=== PATIENT | female | born 1990 | race African-American/Black ===

== ENCOUNTER 2025-09-10 12:18 | Outpatient (CLI) | payer OTHER, SELFPAY ==
--- NOTE | ~2025-09-10 | XR_ITS ---
EXAMINATION: XR knee LT 3V, 09/10/2025 12:35 CDT HISTORY: Pain in Joint,Knee Left Knee Pain x 1 month, no known injury COMPARISON: No comparisons available. Findings: No acute fracture or malalignment. Severe tricompartmental degenerative changes Soft tissues unremarkable. Impression: No acute fracture or malalignment. Reviewed, dictated and finalized at location P. Impression: No acute fracture or malalignment.
--- OUTSIDE RECORDS SUMMARY | 2025-09-10 12:28 | XMS_ITS | Clinical Summary ---
Author Organization [facility] [email or web address] Address [address] [place] [address] Care Team Providers Care Musical Instruments Assembler Name Role Phone Jennifer Patelar Primary Care Provider [phone] Source Comments [facility] [email or web address],non-owned Affiliates and Associated Physician Practices is amultiple site organization consisting of ambulatory clinics and hospital sitesin [place], [place], [place] and [place]. This disclosure is being madepursuant to the Care Everywhere program and may not contain all informatio navailable regarding this patient. Last updated 18.[email or web address] Allergies No known active allergies Medications * This document contains information received from the source organization and may not represent a complete record from that organization. * Be aware that medications may not be up to date on this document. Alwaysverify current medications with the patient. Glucagon (Baqsimi One Pack) 3 MG/DOSE POWDIndications:D iabetes mellitus during , antepartum, unspecified diabetes mellitus type (HCC) [place] 1 Each into the nose as needed 1 Each 1 4 Active Lancets (ONETOUCH DELICA PLUS 33G EXTRA FINE LANCET)Indication s:Pre-existing diabetes mellitus during in first trimester (HCC) To monitor blood glucose 7x daily- fasting, pre-meals, 1 hour post-meals, and as needed. 200 Each 5 4 Active calcium-vitamin D (Caltrate Plus D) 600-200 MG-UNIT tablet Take 1 (one) tablet by mouth once daily 4 Active Insulin Pen Needle (TechLite Pen [place]) 32G X 4 MM MISCIndications:P re-existing type 2 diabetes mellitus during in third trimester (HCC) Use 1 Each 3 times daily 200 Each 5 4 Active metFORMIN (Glucophage) 1000 MG tablet Take 1 (one) tablet by mouth 2 times daily with morning and evening meal 90 tablet 1 5 Active polyethylene glycol 3350 (Miralax) 17 GM/SCOOP powder Mix one capful in liquid and drink by mouth once daily 238 g 12/28/2024 8:44 AM FLIGHT OPERATIONS SPECIALIST 5 Active Additional Information Patient not taking.Reason: Patient adjusted, Reported on 03/18/2025 acetaminophen (Tylenol) 500 MG tablet Take 2 (two) tablets by mouth every 6 hours as needed for Fever or Pain 50 tablet 12/28/2024 8:44 AM FLIGHT OPERATIONS SPECIALIST 5 Active Additional Information Patient not taking.Reason: Patient adjusted, Reported on 03/18/2025 norethindrone (Ortho Micronor) 0.35 MG tabletIndications :Encounter for surveillance of contraceptive pills Take 1 (one) tablet by mouth once daily 30 tablet 12 5 Active Additional Information Patient not taking.Reason: Other, Reported on 03/18/2025 NIFEdipine CR osmotic 24hr (Procardia-XL) 90 MG tablet Take 1 (one) tablet by mouth at bedtime 90 tablet 3 5 Active labetalol (Normodyne; Trandate) 300 MG tablet Take 1 (one) tablet by mouth 2 times daily 180 tablet 3 5 Active Vit-Fe Fumarate-FA ( vitamin) 28-0.8 MG tablet Take 1 (one) tablet by mouth once daily 100 tablet 3 5 Active FeroSul 325 (65 Fe) MG tablet Take 1 (one) tablet by mouth 3 times daily 270 tablet 3 5 Active blood glucose (Contour Plus Test) test stripIndications: Type 2 diabetes mellitus without complication, without long-term current use of insulin ([facility]) Use 1 (one) strip 4 times daily 100 strip 11 5 Active Active Problems Patient Care Coordination No te Formatting of this note migh t be different from the original. [employer] form completed. Diapers given. 10/18/2024, 11/29/24, 12/13/23 Problem Noted Date Diagnosed Date History of severe pre-eclampsia 01/12/2025 Overview (01/12/2025): G1 Obesity, Class III, BMI 40-49.9 (morbid obesity) 01/12/2025 Type 2 diabetes mellitus wit hout complication, without long-term current use of insulin 12/22/2024 Iron deficiency anemia 10/08/2024 Chronic hypertension 06/23/2024 Resolved Problems Problem Noted Date Diagnosed Date Resolved Date History of low transverse section 01/12/2025 03/02/2025 Overview (01/12/2025): - G1 (12/2024): pLTCS for FTP History of hemorrhage 01/12/2025 03/02/2025 Overview (01/12/2025): G1: - QBL 2740mL secondary to uterine atony - S/P Pitocin x2, Hemabate x2, TXA x2, cytotec, IM pitocin and Hallie - S/P 3u pRBCs and 1 FFP History of blood transfusion 01/12/2025 03/02/2025 Overview (01/12/2025): In G1 delivery care following delivery 01/12/2025 03/02/2025 Obesity affecting 08/23/2024 01/12/2025 Abnormal chromosomal and gen etic finding on screening of mother 08/23/2024 01/12/2025 Overview (08/26/2024): No results NIPT d/t low fraction x4 Diabetes in 06/23/20242024 Glucose intolerance 06/23/2024 01/12/20 25 Class 3 severe obesity with serious comorbidity and body mass index (BMI) greater than or equal to 70 in adult 06/23/2024 01/26/2025 Antepartum multigravida of a dvanced maternal age 0706/23/2024 01/12/2025 Immunizations Immunization Administration Dates Next Due MMR 12/25/2024() RSV ABRYSVO PREG OR 60y+ 0.5mL 11/29/2024 TDAP (7yrs+) 12/25/2024(),10/18/2024 Family History Medical History Relation Name Comments Blindness Neg Hx Cataract Neg Hx Glaucoma Neg Hx Macular Degeneration Neg Hx Social History Tobacco Use Types Packs/Day Years Used Date Smoking Tobacco: Unknown Tobacco Cessation:Counseling Given: No Alcohol Use Standard Drinks/Week Comments Not Currently 0 (1 standard drink = 0.6 oz pur e alcohol) AUDIT-C Answer Date Recorded Q1: How often do you have a drink containing alcohol? Never 02/25/2025 Q2: How many drinks containi ng alcohol do you have on a typical day when you are drinking? Patient does not drink Q3: How often do you have si x or more drinks on one occasion? Never 02/25/2025 Overall Financial Resource Strain (CARDIA) Answe r Date Recorded How hard is it for you to pa y for the very basics like food, housing, medical care, and heating? Not hard at all 03/02/2025 PHQ-2 Answer Date Recorded Patient Health Questionnaire-2 Score 0 11/23/2024 [facility] - Occupational Stress Questionnaire Answer Date Recorded Do you feel stress - tense, restless, nervous, or anxious, or unable to sleep at night because your mind is troubled all the time - these days? Only a little 03/02/2025 Hunger Vital Sign Answer Date Recorded Within the past 12 months, y ou worried that your food would run out before you got the money to buy more. Never true 03/02/20 25 Within the past 12 months, t he food you bought just didn't last and you didn't have money to get more. Never true 03/02/2025 PRAPARE - Transportation Answer Date Re corded In the past 12 months, has l ack of transportation kept you from medical appointments or from getting medications? No 01/2025 In the past 12 months, has l ack of transportation kept you from meetings, work, or from getting things needed for daily living? No 03/02/2025 Housing Stability Vital Sign Answer Kenneth e Recorded In the last 12 months, was t here a time when you were not able to pay the mortgage or rent on time? No 06/21/2024 In the last 12 months, how many places have you lived? 1 06/21/2024 In the last 12 months, was t here a time when you did not have a steady place to sleep or slept in a penitentiary (including now)? No 06/21/2024 [place] Depression Scale Answer Date Recorded [place] Depression Scale Total 0 03/02/2025 The thought of harming myself has occurred to me . Never 03/02/2025 Housing Stability Vital Sign Answer Kenneth e Recorded In the last 12 months, was t here a time when you were not able to pay the mortgage or rent on time? No 03/02/2025 In the past 12 months, how m any times have you moved where you were living? 0 03/02/2025 At any time in the past 12 m [place], were you homeless or living in a penitentiary (including now)? No 03/02/2025 Comments No Sex and Gender Information Value Date Recorded Sex Assigned at Not on file Legal Sex Female 5:35 AM FLIGHT OPERATIONS SPECIALIST Gender Identity Female 06/14/2024 9:48 AM CDT Sexual Orientation Not on file Last Filed Vital Signs Vital Sign Reading Time Taken Comments Blood Pressure 140/87 03/18/2025 4:30 PM CDT Pulse 106 03/18/2025 4:30 PM CDT Temperature 37 C (98.6 F) 03/18/2025 4:30 PM CDT Respiratory Rate 18 03/02/2025 10:42 AM CDT Oxygen Saturation 95% 03/18/2025 4:30 PM CDT Inhaled Oxygen Concentration - - Weight 149.7 kg (330 lb) 03/18/2025 4:30 PM CDT Height 152.4 cm (5') 03/18/2025 4:30 PM CDT Body Mass Index 64.45 03/18/2025 4:30 PM CDT Plan of Treatment Upcoming Encounters Date Type Department Care Team (Late st Contact Info) Description 09/28/2025 1:30 PM CDT Office Visit [facility] - Ophthalmology [address] [place] [phone] Ross Negrete MD [address] [place] [address] [place] [address] Health Maintenance Due Date Last Done Comments HEPATITIS B VACCINE (1 of 3 - 19+ 3-dose series) 02/25/2008 PNEUMOCOCCAL VACCINE (1 of 2 - PCV) 02/25/2008 PAP SMEAR 2010 HPV VACCINE (1 - 3-dose SCDM series) 02/25/2016 DIABETES-FOOT EXAM WITH MONOFILAMENT 01/12/2025 COVID-19 VACCINE ( season) 2025 10/17/2022, 01/20/2022, 03/25/2021, Additional history exists INFLUENZA VACCINE (#1) 2025 , 10/17/2022, 12/11/2021 DIABETES-HGB A1C 09/01/2025 03/02/2025, , 08/23/2024 DIABETES - URINE PROTEIN SCREENING 03/18/2026 03/18/2025, 03/02/2025, 12/22/2024, Additional history exists DIABETES-SERUM CREATININE 03/18/20262024, 03/02/2025, 12/25/2024, Additional history exists DIABETES RETINOPATHY SCREENING 09/28/2026 09/28/2024 DTAP/TDAP/TD VACCINES (2 - Td or Tdap) 10/18/2034 10/18/2024 ZOSTER VACCINE (1 of 2) 2039 HEPATITIS C SCREENING Completed 06/21/2024 HIV SCREENING Completed 10/18/2024, 06/21/2024 Respiratory Syncytial Virus (RSV) Vaccine Pt: or over 60 yrs Discontinued 11/29/2024 DEPRESSION SCREENING Completed 03/02/2025 HIB VACCINE Aged Out No longer eligi ble based on patient's age to complete this topic MENINGOCOCCAL (Group B) VACCINE SHARED DECISION-MAKING Aged Out No longer eligible based on patient's age to complete this topic MENINGOCOCCAL GROUPS A/C/Y/W VACCINE Aged Out No longer eligible based on patient's age to complete this topic Goals Goal Patient Goal Type Associated Problems Recent Progress Patient-Stated? Author Medication Management General On track( 025 4:25 PM CDT) Yenny Ye, RN Note: Expected end date: ongoing Interventions: Take all medications as prescribed Make sure to request a refill of your medication at least one week prior to your last dose Try the following to manage nausea: Eat bland, easy to digest foods and drinks Eat small meals and snacks Talk with your doctor or nurse about medications you can take Procedures Procedure Name Priority Date/Time Associated Diagnosis Comments PROTEIN CREATININE RATIO URINE RANDOM PNL Routine 03/18/2025 3:56 PM CDT Iron deficiency anemia due to chronic blood loss Chronic hypertension affecting (HCC) COMPREHENSIVE METABOLIC PANEL Routine 03/18/2025 3:52 PM CDT Iron deficiency anemia due to chronic blood loss Chronic hypertension affecting (HCC) HEMOGLOBIN A1C Routine 03/02/2025 10:07 AM CDT Type 2 diabetes mellitus without complication, without long-term current use of insulin (HCC) HIV-1 HIV-2 ANTIBODY + HIV P24 AG PANEL Routine 10/18/2024 11:35 AM FLIGHT OPERATIONS SPECIALIST Antepartum multigravida of advanced maternal age HEPATITIS C ANTIBODY Routine 06/21/2024 11:52 AM CDT Supervision of high-risk of elderly multigravida from Last 3 Months or Most Recently Relevant to Health Maintenance Results * (ABNORMAL) PROTEIN CREATININE RATIO URINE RANDOM PNL (03/18/2025 3:56 PM CDT) Protein Urine 79 Not Established mg/dL 03/18/2025 5:03 PM CDT [facility] Creatinine Urine 193.76 Not Established mg/dL 03/18/2025 5:03 PM CDT [facility] Protein/Creati nine Ratio Urine 0.41(H) <0.10 03/18/2025 5:03 PM T [facility] Urine URINE SPECIMEN OBTAINED BY CLEAN CATCH PROCEDURE / Unknown Collection / Unknown 03/18/2025 3:56 PM CDT 03/18/2025 4:10 PM CDT Miller Hernandez MD LAB - URINE CHEMISTRY ORDERABLE S Final Result [facility] [address] [place] [address], [facility] [phone] * (ABNORMAL) COMPREHENSIVE METABOLIC PANEL (03/18/2025 3:52 PM [facility]) BUN 14 7 - 26 mg/dL 03/18/2025 5:00 PM [facility] Creatinine 0.71 0.56 - 0.96 mg/dL 03/18/2025 5:00 PM [facility] Sodium 141 136 - 145 mmol/L 03/18/2025 5:00 PM [facility] Potassium 4.0 3.5 - 4.5 mmol/L 03/18/2025 5:00 PM [facility] Chloride 104 98 - 107 mmol/L 03/18/2025 5:00 PM [facility] CO2 23 22 - 29 mmol/L 03/18/2025 5:00 PM [facility] Glucose 91 70 - 99 mg/dL 03/18/2025 5:00 PM [facility] Calcium 9.8 8.4 - 10.2 mg/dL 03/18/2025 5:00 PM [facility] Protein Total 8.3 6.0 - 8.3 g/dL 03/18/2025 5:00 PM [facility] Albumin 4.0 3.4 - 5.0 g/dL 03/18/2025 5:00 PM [facility] Bilirubin Total 0.3 0.2 - 1.2 mg/dL 03/18/2025 5:00 PM [facility] Alkaline Phosphatase 70 40 - 150 U/L 03/18/2025 5:00 PM [facility] ALT 5 5 - 55 U/L 03/18/2025 5:00 PM [facility] AST 8 5 - 34 U/L 03/18/2025 5:00 PM [facility] Anion Gap 14 6 - 16 03/18/2025 5:00 PM [facility] BUN/Creatinine Ratio 20 7 - 23 03/18/2025 5:00 PM CDT [facility] Osmolality Calculated 292 275 - 295 mOsm/kg 03/18/2025 5:00 PM T [facility] Albumin/Globulin Ratio 0.9(L) 1.1 - 2.3 03/18/2025 5:00 PM T [facility] eGFR by CKD-EPI >90 >=90 mL/min/1.7 3 m2 03/18/2025 5:00 PM T [facility] Blood BLOOD SPECIMEN / Unknown Lab Venipuncture / Unknown 03/18/2025 3:52 PM CDT 03/18/2025 4:31 PM CDT Miller Hernandez MD LAB - CHEMISTRY ORDERABLES Sue jeronimo Result [facility] [address] [place] [address], [facility] [phone] * HEMOGLOBIN A1C (HgbA1C) (03/02/2025 10:07 AM CDT) Pathologist [facility] Hemoglobin A1c 5.1 <5.7 % 03/02/2025 11:10 AM CDT [facility] Estimated Average Glucose 100 mg/dL 03/02/2025 11:10 AM CDT [facility] Blood BLOOD SPECIMEN / Unknown Venipuncture / Unknown 03/02/2025 10:07 AM CDT 03/02/2025 10:59 AM CDT [facility] - 03/02/2025 11:10 AM CDT HbA1c Interpretation: Normal: < 5.7% Pre-diabetes: 5.7-6.4% Diabetes: Equal to or greater than 6.5% Test results diagnostic of diabetes should be repeated for confirmation. Treatment target values recommended by ADA and other clinical organizations should be used to evaluate metabolic control in patients. This test should not replace glucose testing for patients with Type 1 diabetes, pediatric patients, or women. Falsely low HbA1c results may be observed in patients with clinical conditions that shorten erythrocyte life span or decrease mean erythrocyte age such as the presence of unstable hemoglobin variants, elevated hemoglobin F level or other causes of hemolytic anemia. HbA1c may not accurately reflect glycemic control when clinical conditions that affect erythrocyte survival are present. Severe Iron deficiency anemia may yield falsely high results. Hemoglobin A1c assay should not be used to diagnose or monitor diabetes in patients with malignancy, recent blood transfusion, chronic kidney or liver disease. This method may yield falsely low results when hemoglobin (HbF) exceeds 5% in the specimen. The [place]aston Alinity assay for the measurement of HbA1c is a National Glycohemoglobin Standardization Program (NGSP) certified method. [facility] - CHEMISTRY ORDERA BLES Final Result Performing Organization Address [facility] Co de Phone Number [facility] [address] [place] [address] * HIV-1 HIV-2 ANTIBODY + HIV P24 AG PANEL (10/18/2024 11:35 AM FLIGHT OPERATIONS SPECIALIST) Pathologist [facility] HIV1/2 Ab + P24 Ag Non Reactive Non Reactive 10/18/2024 1:07 PM FLIGHT OPERATIONS SPECIALIST [facility] Blood BLOOD SPECIMEN / Unknown Venipuncture / Unknown 10/18/2024 11:35 AM FLIGHT OPERATIONS SPECIALIST 10/18/2024 12:20 PM FLIGHT OPERATIONS SPECIALIST Narrative [facility] - 10/18/2024 1:07 PM FLIGHT OPERATIONS SPECIALIST No Laboratory evidence of HIV infection. Donte Tucker MD LAB - CHEMISTRY ORDERABLES Fin al Result Performing Organization Address [facility] de Phone Number [facility] [address] [place] [address] * HEPATITIS C ANTIBODY (06/21/2024 11:52 AM CDT) [facility] HCV Antibody Screen Non Reactive Non Reactive 06/21/2024 2:32 PM CDT [facility] Blood BLOOD SPECIMEN / Unknown Venipuncture / Unknown 06/21/2024 11:52 AM CDT 06/21/2024 1:43 PM CDT Narrative [facility] - 06/21/2024 2:32 PM CDT Non Reactive - Antibodies to Hepatitis C virus (HCV) were not detected, result does not exclude early acute HCV infection. April Sue MD LAB - CHEMISTRY ORDERABLES Final Result [facility] [address] [place] [address] from Last 3 Months or Most Recently Relevant to Health Maintenance Insurance [facility] Advance Directives * Full Code (Latest Code Status on File) Date Activated Date Inactivated Comments 12/24/2024 6:41 AM 12/27/2024 4:46 PM * Full Code Date Activated Date Inactivated Comments 12/22/2024 12:32 AM 12/24/2024 6:41 AM Care Teams Musical Instruments Assembler Relationship Specialty Start Date End Date Bahman Patel [address] [place] [phone] PCP - General 12/09/23
== END 2025-09-10 12:19 | disposition home or self-care (01) ==
LOC: ANHIMG 12:25
PROVIDERS: PCP Physician Assistant Medical; Visit Provider Physician Assistant Medical
DX: M17.12 Unilateral primary osteoarthritis, left knee (principal)
CPT/HCPCS: 73562